=== PATIENT | male | born 1980 | race Caucasian/White ===

== ENCOUNTER → 2017-01-03 | Outpatient (REF) | LOC: ZLAB.WCH 16:15 | DX: Z01.89 Encounter for other specified special examinations (principal) ==

== ENCOUNTER → 2017-12-13 | Outpatient (REF) ==
[2017-12-13 19:46] LABS: THYROID STIMULATING HORMONE 14.6 uIU/mL (0.465-4.680)
== END ==
LOC: ZLAB.WCH 18:34
DX: Z01.89 Encounter for other specified special examinations (principal)

== ENCOUNTER → 2018-08-09 | Outpatient (REF) | LOC: ZLAB.WCH 14:04 | DX: Z01.89 Encounter for other specified special examinations (principal) ==

== ENCOUNTER → 2018-12-26 | Outpatient (REF) ==
[2018-12-26 17:01] LABS: THYROID STIMULATING HORMONE 5.08 uIU/mL (0.465-4.680)
== END ==
LOC: ZLAB.WCH 16:03
PROVIDERS: Nurse Practitioner Family
DX: Z01.89 Encounter for other specified special examinations (principal)

== ENCOUNTER → 2019-02-16 | Outpatient (REF) ==
[2019-02-16 16:01] LABS: IRON,SERUM 113 ug/dL (35-150)
[2019-02-16 16:10] LABS: TOTAL IRON BINDING CAPACITY 311 ug/dL (261-462)
[2019-02-16 16:37] LABS: FERRITIN 155 ng/mL (18-464)
== END ==
LOC: ZLAB.WCH 15:23
PROVIDERS: Physician Assistant
DX: Z01.89 Encounter for other specified special examinations (principal)

== ENCOUNTER → 2019-03-03 | Outpatient (CLI) | payer SELFPAY | LOC: COL.RAD 08:09 | DX: E11.9 Type 2 diabetes mellitus without complications (principal); R74.8 Abnormal levels of other serum enzymes; Z83.79 Family history of other diseases of the digestive system | CPT/HCPCS: Q9967 ==

== ENCOUNTER → 2019-03-06 | Outpatient (REF) | LOC: ZLAB.WCH 17:11 | DX: Z01.89 Encounter for other specified special examinations (principal) ==